=== PATIENT | female | born 1990 | race Caucasian/White ===

== ENCOUNTER → 2016-08-29 | Day surgery (SDC) | payer OTHER ==
[~2016-08-29] MED LIST: ACETAMINOPHEN 1000 MG/100 ML VIAL IV ONE; DARV PO; HEPARIN SODIUM - IV 10,000 UNITS/10 ML VIAL ONE; IOHEXOL 180 MG/ML 20 ML VIAL (for RAD DIAG) ONE; LACTATED RINGER'S 1000 ML INJ 1,000 ML ONE; LIDOCAINE 1%/EPINEPHrine 1:100,000 SOLN 30 ML VIAL ONE; MIDAZOLAM HCL 2 MG/2 ML VIAL ONE; ONDANSETRON HCL 4 MG/2 ML VIAL IV PUSH ONE; PROPOFOL 100 MG/10 ML INJ IV ONE; SODIUM CHLOR 0.9% 250 ML BAG IV ONE; SODIUM CHLORIDE 0.9% INJ 10 ML ONE; VANCOMYCIN 500 MG VIAL ONE; VANCOMYCIN HCL 1000 MG VIAL ONE; Z.0.BCPILL PO; ZITH250T PO
--- NOTE | 2016-08-29 12:40 | MP ---
cc: NALLELY WAGONER M.D., CHRISTINE C. M.D. ALEXANDER, CHRISTOPHER L. DO DATE OF SURGERY: 08/29/2016 PROCEDURE [id number]-I-[id number] placement with intraoperative use of fluoroscopy. PREOPERATIVE DIAGNOSIS Locally advanced invasive ductal carcinoma left breast with need for IV chemotherapy. POSTOPERATIVE DIAGNOSIS Locally advanced invasive ductal carcinoma left breast with need for IV chemotherapy. ANESTHESIA TIVA. SURGEON [facility] Deandre Roca, MS III ESTIMATED BLOOD LOSS Less than 20 mL. FLUIDS 950 mL crystalloid. COMPLICATIONS None. DRAINS None. SPECIMEN None. PROCEDURE IN DETAIL The patient was taken to the operating room and placed on the operating table in a supine position. After an adequate level of IV sedation was begun, the chest and neck were prepped and draped bilaterally. A timeout was taken confirming the correct patient, site and procedure to be performed. The patient was then placed in Trendelenburg position and the right subclavian region was infiltrated with local anesthetic. An 18-gauge needle was passed into the subclavian vein on the first attempt and a guidewire was passed and seen to course into the superior vena cava and actually through the atrium and into the inferior vena cava. There were only one or two ectopic beats during this portion of the procedure. At this point an Qcbflk-W-Puva pocket was created inferior to the exit site of the wire. This was infiltrated with local anesthetic and an incision made inferior to the exit site of the wire. The port pocket was created with electro-dissection. When the port was of adequate size the catheter was brought through a short tunnel from the percutaneous puncture site into the pocket. The tract was then dilated with an introducer and sheath over the guidewire. This was seen to pass smoothly into the superior vena cava under fluoroscopic guidance. The introducer and guidewire were then removed and the catheter passed down the sheath. The sheath was peeled away. The catheter was withdrawn to 15 cm at which point it was trimmed, attached to the port and the hub snapped over the connection. The port was placed into the pocket. The port was accessed with a Gonzales needle and good blood return was achieved. After flushing the port, the position was further confirmed by injection of the port with 10 cc of contrast. The catheter was confirmed to be in the superior vena cava with dye study confirming this. When this had been completed, the port was affixed to the pocket with 2-0 Prolene suture. The pocket percutaneous puncture site was closed with interrupted 3-0 Vicryl suture as was as the port pocket site. The skin at the port pocket was then closed with 5-0 PDS in a running subcuticular fashion. The incisions were dressed with Steri-Strips. The patient was taken back to the recovery room in stable condition. Sponge and needle counts were reported to be correct. MD URIAH Cuevas/ROSITA /12:11 PM /12:35 PM
== END | disposition home or self-care (01) ==
LOC: ESDC 09:09
PROVIDERS: ATTEND Surgery Trauma Surgery
DX: C50.912 Malignant neoplasm of unspecified site of left female breast (principal)
CPT/HCPCS: 00532; 36561; 77001; C1788; J0131; J1644; J2250; J2405; J3010; J3370; J7050; J7120; Q9965